=== PATIENT | male | born 1995 | race Two or more races ===

== ENCOUNTER 2016-06-28 18:24 | Emergency (ER) | payer BC ==
[2016-06-28] MEDS ORDERED: ONDANSETRON 4 MG VIAL ONE (19:39)
[2016-06-28] MEDS ORDERED: SODIUM CHLORIDE 0.9% 1,000 ML ONE (19:39)
== END 2016-06-28 21:45 | disposition home or self-care (01) ==
LOC: ER 18:24 → EDBD 18:24 → ER 21:45
DX: J20.9 Acute bronchitis, unspecified (principal); J01.00 Acute maxillary sinusitis, unspecified; J00 Acute nasopharyngitis [common cold]
CPT/HCPCS: 36415; 71020; 80053; 85025; 87804; 87880; 96361; 96374